=== PATIENT | female | born 1985 | race Caucasian/White ===

== ENCOUNTER → 2019-02-03 | Day surgery (SDC) | payer OTHER | END | disposition home or self-care (01) | LOC: JRAD 09:59 → JRADUS-SUR 09:59 | PROVIDERS: ATTEND Obstetrics & Gynecology | PROC: BU18YZZ Fluoroscopy of Uterus and Fallopian Tubes using Other Contrast (ICD-10-PCS; principal; 2019-02-03) | DX: N97.9 Female infertility, unspecified (principal) | CPT/HCPCS: 58340; 74740-TC-FY; 76000-TC-FY; 84703 ==

== ENCOUNTER 2019-04-25 04:47 | Day surgery (SDC) | payer OTHER ==
[2019-04-21 09:00] VITALS: BMI 20.9
--- NOTE | 2019-04-25 07:09 | HP ---
History & Physical Update - Physical Physical: No Change - Assessment Assessment: No Change - Plan Plan: No Change (H&P reviwed , no changes for laparoscopy ,possible salpingectomy)
[2019-04-25] MEDS ORDERED: MIDAZOLAM HCL 2 MG/2 ML SINGLE DOSE VIAL ONE (09:21)
[2019-04-25] MEDS ORDERED: ONDANSETRON 4 MG/2 ML VIAL IVPUSH PRN ×2 (09:53→12:22)
[2019-04-25] MEDS ORDERED: IBUPROFEN 600 MG TABLET (FP) PO PRN (09:53)
[2019-04-25] MEDS ORDERED: IBUPROFEN 800 MG/8 ML IJ IVPB PRN (09:53)
[2019-04-25] MEDS ORDERED: oxyCODONE HCL 5 MG TABLET PO PRN ×2 (09:53→12:22)
[2019-04-25] MEDS ORDERED: PROPOFOL 20 ML ONE ×3 (09:53→11:32)
[2019-04-25] MEDS ORDERED: ROCURONIUM BROMIDE 50 MG/5 ML SYRINGE ONE ×2 (09:54→11:32)
[2019-04-25] MEDS ORDERED: ELECTROLYTE-148 SOLN 1,000 ML IV SCH (10:00)
[2019-04-25] MEDS ORDERED: GLYCOPYRROLATE 0.2 MG/1 ML VIAL ONE (10:14)
[2019-04-25] MEDS ORDERED: NEOSTIGMINE METHYLSULFATE 0.5 MG/ML - 10 ML MDV ONE (10:14)
[2019-04-25] MEDS ORDERED: ACETAMINOPHEN INJECTION 100 ML IVPB ONE (11:18)
[2019-04-25] MEDS ORDERED: KETOROLAC TROMETHAMINE 30 MG/1 ML VIAL ONE (11:18)
[2019-04-25] MEDS ORDERED: PROMETHAZINE HCL 25 MG/1 ML VIAL IVPUSH PRN (12:22)
[2019-04-25] MEDS ORDERED: KETOROLAC TROMETHAMINE 30 MG/1 ML VIAL IVPUSH ONE (12:23)
[2019-04-25] MEDS ORDERED: ACETAMINOPHEN 1000 MG/100 ML VIAL (NON FORMULARY) IVPB ONE (12:23)
[2019-04-25] MEDS ORDERED: LACTATED RINGERS SOLUTION 1,000 ML IV SCH (12:30)
--- NOTE | 2019-04-25 13:58 | OP ---
DATE OF OPERATION: 04/25/2019 PREOPERATIVE DIAGNOSIS: History of infertility, hydrosalpinx. POSTOPERATIVE DIAGNOSIS: History of infertility, hydrosalpinx. PROCEDURE: Laparoscopic left salpingectomy. SURGEON: Dilip Whitney MD FLOORING MACHINE FEEDER: Dalton Kay MD ANESTHESIA: General. ANESTHESIOLOGIST: Emilie Parker MD ESTIMATED BLOOD LOSS: 5 mL. DESCRIPTION OF PROCEDURE: Patient was taken to the operating room. Under adequate general anesthesia, abdomen and perineum were prepped and draped. Examination under anesthesia revealed external genitalia to be normal. Vagina was normal. Cervix was clean. No lesions. Uterus was normal size, anteverted. Adnexa, no masses were palpated. Then with a weighted speculum in the vagina, anterior lip of the cervix was grasped with a single-tooth tenaculum. Using a , was sounded to 7 cm and then Hulka was introduced into the uterine cavity for manipulation. Bose was inserted and patient was prepped and draped in dorsal lithotomy position for the laparoscopy. A small infraumbilical incision was made. Veress needle was introduced without any difficulty. Pneumoperitoneum was established. A 5-mm trocar introduced through the umbilical area and then under direct vision 2 small incisions were made in the right and left hypogastric areas, and two 5-mm trocars were inserted under direct vision. Visualization of the upper abdomen showed that there was some omental adhesion to the anterior abdominal wall. Uterus was normal size with about 2-cm anterior lower uterine segment intramural myoma. Both ovaries appeared to be normal. Cul-de-sac was free of adhesions. Bladder was normal. The left tube appeared to be slightly dilated and hyperemic. The right appeared to be normal, normal fimbriated ends. No evidence of hydrosalpinx on the right side. The left side tube, because of inflammatory changes, was grasped with a grasper, and with the LigaSure cautery along the mesosalpinx on the left side, the tube was grasped, and mesosalpinx was cauterized and cut until the cornual region was reached and then the tube was removed and taken out through the 5-mm trocar. Pelvic cavity several times irrigated, and no active bleeding was seen. No other abnormality noted. Abdomen was emptied of all the gases. Instruments withdrawn. Incisions were closed with interrupted sutures of 3-0 Biosyn, and the skin was closed with Dermabond glue. Patient tolerated the procedure well and left the OR in good condition. DILIP WHITNEY M.D. [id number]
[2019-04-25 15:17] VITALS: TEMP 98
[2019-04-25 15:20] VITALS: BP 106/68; PULSE 63
--- NOTE | 2019-04-26 18:39 | PATH ---
Surgical Pathology Report Patient Name: BRAYAN EID [facility]. Rec. #: [id number] /Age/Gender: 1985 (Age: 34) / F Account: [id number] Location: [facility] SURGICAL Taken: 04/25/2019 Received: 04/25/2019 Reported: 04/26/2019 Physicians: Dilip Burdick M.D. Specimen(s) Received LEFT FALLOPIAN TUBE Clinical History Female infertility of tubal origin Final Diagnosis FALLOPIAN TUBE, LEFT, SALPINGECTOMY: FALLOPIAN TUBE WITH PARATUBAL CYSTS (INCLUDING FIMBRIATED END AND FULL LUMINAL PORTION). Electronically Signed Chuyita Dickens M.D. Gross Description Received in formalin labeled "left fallopian tube," is a 5.5 cm in length fimbriated fallopian tube. The outer surface is sommers-bey and shows small paratubal cysts measuring up to 0.3 cm in greatest dimension. Sectioning reveals an unremarkable lumen. Medical Administrative Technician sections are submitted in 2 cassettes as follows: 1-fimbria; 2-cross sections of fallopian tube. MLSZ/04/25/2019 sanml/04/25/2019
== END 2019-04-25 14:50 | disposition home or self-care (01) ==
LOC: JASU-SURG 04:47
PROVIDERS: ATTEND Obstetrics & Gynecology
PROC: 0UB64ZZ Excision of Left Fallopian Tube, Percutaneous Endoscopic Approach (ICD-10-PCS; principal; 2019-04-25 09:30)
DX: N70.11 Chronic salpingitis (principal); N83.8 Other noninflammatory disorders of ovary, fallopian tube and broad ligament; N97.9 Female infertility, unspecified
CPT/HCPCS: 84703; 88302-TC; 94760; J0131

== ENCOUNTER 2019-08-21 00:41 | Emergency (ER) | payer OTHER ==
[2019-08-21 00:54] VITALS: TEMP 97.9; BMI 21.6
--- NOTE | 2019-08-21 00:55 | PDOC ---
History of Present Illness - General Chief Complaint: Vaginal Bleeding Stated Complaint: 8WKS /BLOOD IN UNDERWEAR Time Seen by Provider: 08/21/19 00:53 - History of Present Illness Initial Comments: HPI: 34yo A5 currently 8 weeks (LMP 06/16/19) presenting with vaginal bleeding. Patient reports that she has had a confirmed intrauterine with a heartbeat via ultrasound with her secondary history teacher on Wednesday. Vaginal bleeding is scant, noted as brown upon wiping and on patients underwear. Patient states she has not passed any clots or tissue. Patient reports unusual abdominal sensation that is mild and she is unsure if this is associated with something she ate. Last bowel movement was last night and was a normal formed brown stool without blood. No dysuria, hematuria, or urgency. No nausea or vomiting. History of surgeries includes fallopian "tube removal due to infection" in April 2019 and . Denies fever, chills, chest pain, or shortness of breath. business analytics analyst: Gennaro ROS: Constitutional: no fever, no chills HEENT: no throat pain, no dysphagia Cardiovascular: no chest pain, no palpitations Respiratory: no cough, no shortness of breath Gastrointestinal: no abdominal pain, no nausea Genitourinary: no dysuria, +vaginal bleeding Musculoskeletal: no myalgia, no arthralgia Skin: no rash, no itching Neurologic: no headache, no weakness PE: General: Awake, alert, and fully oriented, in no acute distress Head: No signs of trauma Eyes: EOMI, sclera anicteric ENT: Moist mucus membranes Neck: Normal ROM, supple Lungs: Lungs clear, Normal breath sounds Cardio: Regular rhythm, S1 and S2 present Abdomen: Soft, nontender. No guarding, no rebound, no masses. No CVA tenderness. Extremities: Normal range of motion, Distal pulses present SKIN: Warm, Dry, normal turgor Neurologic: Cranial nerves II through XII grossly intact. Normal speech Pelvic: External genitalia without erythema, exudate or discharge. Vaginal vault is with scant blood. Cervix is of normal color without lesion. The os is fingertip. Uterus is noted to be of appropriate size and nontender. No cervical motion tenderness is seen. No masses are palpated. The adnexa are without masses or tenderness. ED Course/MDM: DDX including but not limited to threatened , ectopic , subchorionic hemorrhage, UTI, cervical/vaginal lesion, thrombocytopenia, pre- eclampsia Labs Ultrasound 08/21/19 00:55 CBC WBC 9.4 K/mm3 (4.0-10.0) 08/21/19 01:10 RBC 4.23 M/mm3 (3.60-5.2) 08/21/19 01:10 Hgb 13.1 GM/dL (10.7-15.3) 08/21/19 01:10 Hct 37.9 % (32.4-45.2) 08/21/19 01:10 MCV 89.6 fl (80-96) 08/21/19 01:10 MCH 31.0 pg (25.7-33.7) 08/21/19 01:10 MCHC 34.6 g/dl (32.0-36.0) 08/21/19 01:10 RDW 12.7 % (11.6-15.6) 08/21/19 01:10 Plt Count 261 K/MM3 (134-434) 08/21/19 01:10 MPV 8.3 fl (7.5-11.1) 08/21/19 01:10 Absolute Neuts (auto) 5.0 K/mm3 (1.5-8.0) 08/21/19 01:10 Neutrophils % 52.8 % (42.8-82.8) D 08/21/19 01:10 Lymphocytes % 37.6 % (8-40) D 08/21/19 01:10 Monocytes % 6.9 % (3.8-10.2) 08/21/19 01:10 Eosinophils % 2.2 % (0-4.5) 08/21/19 01:10 Basophils % 0.5 % (0-2.0) 08/21/19 01:10 Nucleated RBC % 0 % (0-0) 08/21/19 01:10 No leukocytosis No anemia Patient back from ultrasound 08/21/19 01:33 Patient signed out to Dr. Paige and night team Pending US result Pending UA 08/21/19 02:04 Past History - Past Medical History Allergies/Adverse Reactions: Allergies Allergy/AdvReac Type Severity Reaction Status Date / Time No Known Allergies Allergy Verified 04/25/19 09:03 Home Medications: Ambulatory Orders Ibuprofen [Motrin -] 600 mg PO QID #28 tablet 04/25/19 Pnv No.95/Ferrous Fum/Folic AC [ Caplet] 1 each PO DAILY 04/25/19 Asthma: No Cancer: No Cardiac Disorders: No COPD: No Diabetes: No HTN: No Kidney Stones: Yes Seizures: No Thyroid Disease: No - Reproductive History (#): 2 Para: 1 Therapeutic (s) & number: No Spontaneous : 1 - Psycho Social/Smoking Cessation Hx Smoking Status: No Smoking History: Never smoked Number of Cigarettes Smoked Daily: 0 Hx Alcohol Use: No Drug/Substance Use Hx: No Substance Use Type: None Hx Substance Use Treatment: No *Physical Exam - Vital Signs Last Vital Signs Temp Pulse Resp BP Pulse Ox 97.9 F 74 16 110/70 99 08/21/19 00:52 08/21/19 00:52 08/21/19 00:52 08/21/19 00:52 08/21/19 00:52 ED Treatment Course - LABORATORY CBC & Chemistry Diagram: 08/21/19 01:10 Discharge - Discharge Information Problems reviewed: Yes Clinical Impression/Diagnosis: Vaginal bleeding during - Follow up/Referral Referrals: Arian Butler MD [Primary Care Provider] - Dilip Burdick MD [Staff Physician] - - Patient Discharge Instructions Patient Printed Discharge Instructions: DI for Threatened Additional Instructions: You were seen in the Emergency Department for vaginal spotting during . Blood work was normal. Follow-up with your secondary history teacher. Call and make an appointment. Your workup is not complete until you do so. Pelvic rest is recommended until you are cleared by your secondary history teacher. Return to the Emergency Department if you experience: -heavy bleeding (more than two pads per hour for two hours) -severe pain -lightheadedness -shortness of breath -high fever -any other concerning symptoms - Post Discharge Activity
[2019-08-21 01:19] LABS: BASO % 0.5 % (0-2.0); EOS % 2.2 % (0-4.5); HEMATOCRIT 37.9 % (32.4-45.2); HEMOGLOBIN 13.1 GM/dL (10.7-15.3); LYMPH % 37.6 % (8-40); MCHC 34.6 g/dl (32.0-36.0); MEAN CELL VOLUME 89.6 fl (80-96); MEAN PLT VOLUME 8.3 fl (7.5-11.1); MONO % 6.9 % (3.8-10.2); NEUT % 52.8 % (42.8-82.8); PLATELET COUNT 261 K/MM3 (134-434); RBC 4.23 M/mm3 (3.60-5.2); RDW 12.7 % (11.6-15.6); WHITE BLOOD COUNT 9.4 K/mm3 (4.0-10.0)
--- NOTE | 2019-08-21 01:41 | PDOC ---
Documentation entered by Janet Montano SCRIBE, acting as scribe for Aleisha Foy MD. Aleisha Foy MD: This documentation has been prepared by the Dusty mcgee Sammi, SCRIBE, under my direction and personally reviewed by me in its entirety. I confirm that the documentation accurately reflects all work, treatment, procedures, and medical decision making performed by me. Attending Attestation - Resident Resident Name: Marah Tyson - ED Attending Attestation I have performed the following: I have examined & evaluated the patient, The case was reviewed & discussed with the resident, I agree w/resident's findings & plan, Exceptions are as noted - HPI HPI: 08/21/19 01:13 The patient is a 34 year old female, A5, 8 weeks , who presents to the emergency department for evaluation of abnormal sensation and vaginal bleeding. The patient states she obtained a normal ultrasound per Dr. Burdick this week where a normal heart beat was witness. She presents today with concern of abnormal bleeding. LMP 06/16/19 - Physicial Exam PE: 08/21/19 01:54 I agree with DrAlber this was shows physical exam - Medical Decision Making 08/21/19 01:55 Patient is followed by Dr. Woo for her BULB PLANTER This evening she came in because she is 8 weeks and saw some blood in her underwear She states that Dr. Woo did an ultrasound that showed an intrauterine Last menstrual cycle was July 05 Past surgical history Fallopian tube removed
--- NOTE | 2019-08-21 01:58 | PDOC ---
*Physical Exam - Vital Signs Last Vital Signs Temp Pulse Resp BP Pulse Ox 97.9 F 74 16 110/70 99 08/21/19 00:52 08/21/19 00:52 08/21/19 00:52 08/21/19 00:52 08/21/19 00:52 ED Treatment Course - LABORATORY CBC & Chemistry Diagram: 08/21/19 01:10 - ADDITIONAL ORDERS Additional order review: 08/21/19 01:10 RBC 4.23 MCV 89.6 MCHC 34.6 RDW 12.7 MPV 8.3 Neutrophils % 52.8 D Lymphocytes % 37.6 D Monocytes % 6.9 Eosinophils % 2.2 Basophils % 0.5 Medical Decision Making - Medical Decision Making 08/21/19 01:56 Sign out from day team 34yo A5 currently 8 weeks (LMP 06/16/19) presenting with vaginal bleeding d/t threatened . US showed single intrauterine gestation 6 weeks length without heartbeat, 2.3 R ovarian cyst. Cervical os closed. HCG 33,000. Hemodynamically stable, not anemic. DC home w OBGYN Dr Burdick f/u Discharge - Discharge Information Problems reviewed: Yes Clinical Impression/Diagnosis: Threatened Condition: Stable Disposition: HOME - Follow up/Referral Referrals: Arian Butler MD [Primary Care Provider] - Dilip Burdick MD [Staff Physician] - - Patient Discharge Instructions Patient Printed Discharge Instructions: DI for Threatened Additional Instructions: You were seen in the Emergency Department for vaginal spotting during . Blood work was normal. Follow-up with your administrative receptionist. Call and make an appointment. Your workup is not complete until you do so. Pelvic rest is recommended until you are cleared by your administrative receptionist. Return to the Emergency Department if you experience: -heavy bleeding (more than two pads per hour for two hours) -severe pain -lightheadedness -shortness of breath -high fever -any other concerning symptoms - Post Discharge Activity
[2019-08-21 02:12] LABS: PH,URINE 6.5 (5.0-8.0); URINE APPEARANCE Clear; URINE BILIRUBIN Negative (NEGATIVE); URINE COLOR Yellow; URINE GLUCOSE (UA) Negative (NEGATIVE); URINE KETONE Negative (NEGATIVE); URINE LEUK ESTERASE Negative (NEGATIVE); URINE NITRITE Negative (NEGATIVE); URINE PROTEIN Negative (NEGATIVE); URINE UROBILINOGEN 0.2 mg/dL (0.2-1.0)
[2019-08-21 06:02] VITALS: BP 111/83; PULSE 72
== END 2019-08-21 02:43 | disposition home or self-care (01) ==
LOC: JER 00:41
DX: O26.891 Other specified pregnancy related conditions, first trimester (principal); O20.0 Threatened abortion; O34.81 Maternal care for other abnormalities of pelvic organs, first trimester; N83.291 Other ovarian cyst, right side; Z3A.08 8 weeks gestation of pregnancy
CPT/HCPCS: 36415; 76817-TC; 81003; 84702; 85025; 86850; 86900; 86901; 87086; 99283-25

== ENCOUNTER 2019-09-05 05:05 | Day surgery (SDC) | payer OTHER ==
[2019-09-04 09:02] VITALS: BMI 20.9
--- NOTE | 2019-09-05 09:05 | HP ---
History & Physical Update - Physical Physical: No Change - Assessment Assessment: No Change - Plan Plan: No Change (H&P reviwed , no changes ,for suction D&C)
[2019-09-05] MEDS ORDERED: DEXAMETHASONE SOD PHOSPHATE 4 MG/1 ML VIAL ONE (11:12)
[2019-09-05] MEDS ORDERED: MIDAZOLAM HCL 2 MG/2 ML SINGLE DOSE VIAL ONE (11:12)
[2019-09-05] MEDS ORDERED: KETOROLAC TROMETHAMINE 30 MG/1 ML VIAL ONE (11:29)
[2019-09-05] MEDS ORDERED: SUCCINYLCHOLINE CHLORIDE 200 MG/10 ML SYRINGE ONE (11:41)
[2019-09-05] MEDS ORDERED: ONDANSETRON 4 MG/2 ML VIAL IVPUSH PRN (11:51)
[2019-09-05] MEDS ORDERED: oxyCODONE HCL 5 MG TABLET PO PRN (11:51)
[2019-09-05] MEDS ORDERED: IBUPROFEN 800 MG/8 ML IJ IVPB PRN (11:51)
[2019-09-05] MEDS ORDERED: IBUPROFEN 600 MG TABLET (FP) PO PRN (11:51)
--- NOTE | 2019-09-05 11:55 | OP ---
Operative Note - Note: Operative Date: 09/05/19 Pre-Operative Diagnosis: missed Operation: suction D&C Findings: cx closed , uterus 8 weeks, av Surgeon: Dilip Burdick Anesthesia: General Estimated Blood Loss (mls): 50 Drains & Tubes with Location: none Blood Volume Replaced (mls): 50 Operative Report Dictated: Yes
[2019-09-05] MEDS ORDERED: MEPERIDINE HCL 25 MG/ML VIAL ONE (11:58)
[2019-09-05] MEDS ORDERED: ELECTROLYTE-148 SOLN 1,000 ML IV SCH (12:00)
[2019-09-05 14:10] VITALS: TEMP 98
[2019-09-05 15:18] VITALS: BP 103/60; PULSE 63
--- NOTE | 2019-09-05 16:51 | OP ---
DATE OF OPERATION: 09/05/2019 PREOPERATIVE DIAGNOSIS: Missed . POSTOPERATIVE DIAGNOSIS: Missed . PROCEDURE: Suction dilation and curettage. SURGEON: Dilip Burdick MD ANESTHESIA: General. ESTIMATED BLOOD LOSS: 50 mL. DESCRIPTION OF PROCEDURE: Patient was taken to the operating room under adequate general anesthesia. Examination under anesthesia revealed external genitalia to be normal. Vagina was normal. Cervix was closed. No lesion, no bleeding. Uterus was 8 weeks' size, anteverted. Adnexa, no masses were palpable. Then with the weighted speculum in the vagina, anterior lip of the cervix was grasped with single-tooth tenaculum. Cervix was gradually dilated with Hegar dilators and then suction curette was inserted and contents was suctioned. No active bleeding was seen. Patient tolerated the procedure well and left the OR in good condition. DILIP BURDICK M.D. [id number]
--- NOTE | 2019-09-06 18:42 | PATH ---
Surgical Pathology Report Patient Name: BRAYAN EID [facility]. Rec. #: [id number] /Age/Gender: 1985 (Age: 34) / F Account: [id number] Location: [facility] SURGICAL Taken: 09/05/2019 Received: 09/05/2019 Reported: 09/06/2019 Physicians: Dilip Burdick M.D. Specimen(s) Received PRODUCTS OF CONCEPTION Clinical History Missed Final Diagnosis PRODUCTS OF CONCEPTION, SUCTION DILATION AND CURETTAGE: IMMATURE CHORIONIC VILLI, DECIDUA, AND GESTATIONAL ENDOMETRIUM CONSISTENT WITH PRODUCTS OF CONCEPTION. CHROMOSOMAL STUDIES ARE PENDING AND WILL BE REPORTED SEPARATELY AN ADDENDUM. Electronically Signed Chuyita Dickens M.D. 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 The origin of this material and its clinical significance are uncertain. This chromosome abnormality is likely the cause of this loss. Parental blood cytogenetic studies may aid in the interpretation of this abnormality. If parental studies are normal, further fluorescence in situ hybridization (FISH) studies may clarify the nature of the rearrangement. RECOMMENDATION: Chromosome analysis of both parents (5 cc of blood in green top sodium heparin tubes) to determine if one parent is a balanced rearrangement carrier. Genetic counseling. COMMENT: No other chromosome abnormalities are observed. The standard cytogenetic methodology utilized in this analysis does not routinely detect subtle rearrangements or low-level mosaicism and cannot detect microdeletions. Also, it cannot detect molecular cytogenetic abnormalities (such as microdeletions and microduplications) that may be detectable by microarray analysis. See [employer] report for additional details. Chuyita Dickens M.D. Gross Description Received in formalin, labeled "products of conception," is a 5 x 4 x 0.8 cm. aggregate of sommers-red soft tissue fragments. No definitive villous or somatic tissue is identified. Scouring Pads Supervisor portion is submitted in 2 cassettes. A enrollment representative portion is submitted for chromosomal analysis. MLSZ/09/05/2019 sanml/09/05/2019
== END 2019-09-05 15:15 | disposition home or self-care (01) ==
LOC: JASU-SURG 05:05
PROVIDERS: ATTEND Obstetrics & Gynecology
PROC: 10D17ZZ Extraction of Products of Conception, Retained, Via Natural or Artificial Opening (ICD-10-PCS; principal; 2019-09-05 11:00)
DX: O02.1 Missed abortion (principal)
CPT/HCPCS: 88305-TC; 94760

== ENCOUNTER 2021-02-03 17:17 | Emergency (ER) | payer OTHER ==
[2021-02-03 17:37] VITALS: BP 109/74; PULSE 69; TEMP 98.1; BMI 20.9
== END 2021-02-03 18:54 | disposition home or self-care (01) ==
LOC: JERFT 17:17
DX: K08.89 Other specified disorders of teeth and supporting structures (principal)
CPT/HCPCS: 99281-25

== ENCOUNTER 2022-08-17 16:50 | Emergency (ER) | payer BC, OTHER ==
[2022-08-17 17:44] VITALS: BP 106/72; PULSE 71; RESP 16; TEMP 98; BMI 27.1
[2022-08-17] MEDS ORDERED: KETOROLAC TROMETHAMINE 15 MG/ML VIAL IVPUSH ONE (18:47)
[2022-08-17] MEDS ORDERED: SODIUM CHLORIDE 0.9% 500 ML INFUS.BAG IV ONE (18:47)
[2022-08-17] MEDS ORDERED: ACETAMINOPHEN 1000 MG/100 ML BAG IVPB ONE (18:47)
[2022-08-17] MEDS ORDERED: KETOROLAC TROMETHAMINE 15 MG/ML VIAL ONE (19:33)
[2022-08-17] MEDS ORDERED: ACETAMINOPHEN INJECTION 100 ML IVPB ONE (19:33)
[2022-08-17 20:33] LABS: BASO % 1.2 % (0-2.0); EOS % 5.3 % (0-4.5); HEMOGLOBIN 12.8 GM/dL (10.7-15.3); MCH 29.6 pg (25.7-33.7); MCHC 33.6 g/dl (32.0-36.0); MEAN CELL VOLUME 88.1 fl (80-96); MEAN PLT VOLUME 8.3 fl (7.5-11.1); MONO % 6.7 % (3.8-10.2); NEUT % 49.8 % (42.8-82.8); PLATELET COUNT 299 10^3/uL (134-434); RBC 4.31 M/mm3 (3.60-5.2); RDW 12.9 % (11.6-15.6); WHITE BLOOD COUNT 7.1 K/mm3 (4.0-10.0)
[2022-08-17 20:48] LABS: CALCIUM 8.6 mg/dL (8.5-10.1)
[2022-08-17 20:49] LABS: ALBUMIN 3.7 g/dl (3.4-5.0); BLOOD UREA NITROGEN 7.4 mg/dL (7-18)
[2022-08-17 20:52] LABS: CREATININE 0.7 mg/dL (0.55-1.3)
== END 2022-08-17 21:15 | disposition home or self-care (01) ==
LOC: JER 16:50
PROC: 3E033GC Introduction of Other Therapeutic Substance into Peripheral Vein, Percutaneous Approach (ICD-10-PCS; principal; 2022-08-17)
DX: G43.909 Migraine, unspecified, not intractable, without status migrainosus (principal)
CPT/HCPCS: 0241U-QW; 36415; 70450-TC; 80053; 83735; 84703; 85025; 93005; 93010; 99285-25